=== PATIENT | male | born 1965 | race Caucasian/White ===

== ENCOUNTER 2020-02-15 12:15 | Emergency (ER) | payer OTHER, SELFPAY ==
[2020-02-15 12:17] VITALS: BP 154/84; PULSE 79; RESP 20; TEMP 36.6; O2SAT 97; BMI 30.4
--- NOTE | 2020-02-15 12:25 | ED.RN ---
no old ekgs
--- NOTE | 2020-02-15 12:35 | RAD_ITS ---
STUDY: X-RAY CHEST REASON FOR EXAM: Male, 54 years old. CHEST PAIN, SOB TECHNIQUE: Single AP portable view of the chest. COMPARISON: None. FINDINGS: There are monitoring devices. The lungs are clear and expanded. There is no demonstrated pleural abnormality. Normal size heart. Normal mediastinum and devika. Normal visualized pulmonary arteries. Normal visualized aortic arch and descending thoracic aorta. Normal visualized thoracic spine. Normal visualized ribs, clavicles, and shoulders. There is no demonstrated abnormality of the visualized soft tissue structures of the upper abdomen. RAD/Chest 1 View (Portable) IMPRESSION: Normal x-ray examination of the chest. Electronically Signed: Naveed Aquino MD at 13:11 EDT , Service support ,
--- NOTE | 2020-02-15 12:35 | EKG12_ITS ---
Test Reason : CP Blood Pressure : / mmHG Vent. Rate : 079 BPM Atrial Rate : 079 BPM P-R Int : 140 ms QRS Dur : 092 ms QT Int : 368 ms P-R-T Axes : 055 -21 032 degrees QTc Int : 421 ms Normal sinus rhythm Normal ECG Confirmed by DILLON ALEJO, RIKA ([id number]), photograph editor RAJAN HULL ([id number]) on 02/20/2020 11:15:44 AM Referred By: KAYLEY Confirmed By:JOSE LUIS CARRANZA MD
--- NOTE | 2020-02-15 12:36 | ED.DCSUM_ITS ---
- ER Visit Summary Date of Service: 02/15/20 Chief Complaint: Chest pain and palpitations History of Present Illness: The patient is a 54 M who presents with chest pain and palpitations that began today. Patient states he was driving to work and he felt like his heart was racing. Patient states this lasted several minutes until he got to work. Patient states he was feeling somewhat dizzy when he got out of his truck today. Patient states he had a coworker bring him to the emergency department. Patient does have a history of atrial fibrillation. Patient had a prostate biopsy done yesterday. Patient admits to some mild shortness of breath. Patient denies any cough. Patient admits to some mild nausea but denies any vomiting. Patient admits to some lightheadedness but denies any syncopal episode. Physical Examination: Vital signs are stable. Patient is afebrile. Patient is in no acute distress. Oral mucosa is pink and moist. Neck is supple. Trachea is midline. There is no JVD noted. Heart was regular rate and rhythm. Lungs are clear and equal bilaterally. Abdomen is soft. Bowel sounds are normal. There is no tenderness. There is no rebound or guarding noted. Skin is warm dry. Cranial nerves II through XII are intact. There are no focal motor or sensory deficits noted. Extremities are intact. There is no calf tenderness or edema. Test Results: EKG shows a normal sinus rhythm with a rate of 79. There are no acute ST or T wave changes. There are no prior EKGs available for comparison. CBC and basic metabolic profile were obtained and were within normal limits. Troponin was normal. D-dimer was elevated at 1.83. Portable chest x-ray was obtained and was normal. Because of the elevated d-dimer, CTA of the chest was obtained. There is limited enhancement of the pain pulmonary artery and right and left pulmonary arteries. There is subtle regions of diminished filling in the bilateral upper lung pulmonary arteries consistent with artifact versus embolism. This was interpreted by the radiologist and reviewed by myself. Because of this, venous duplex of the lower extremities was obtained. There is no evidence of DVT. Emergency Department Course and Treatment: Patient was advised of his findings. Patient feels better on reevaluation. Since the patient has normal vital signs and no evidence of DVT, I do not feel that he requires anticoagulation at this time considering the possibility of artifact on the CT. Patient has a HEART score of 3. Patient was advised that this is low risk for acute cardiac event. Patient was advised to follow-up with his primary care physician in 5 to 7 days. Patient was instructed return to the emergency department if worse in any way, especially if any chest pain or shortness of breath. Patient understands and is agreeable with the plan. All questions were answered. Disposition: Discharge home Impression: 1. Chest pain This note was generated with [employer] dictation software. It may contain incorrect words, spelling, and punctuation that were not noted in review of the chart prior to signing ED Disposition - Plan for ED Patient: Disposition: Home or Assisted Living Diagnosis: Chest pain Instructions: ED Chest Pain Atypical Unkn Cause Referrals: Wilrfido Merlos MD [Primary Care Provider] - 5-7 Days
[2020-02-15 12:49] VITALS: O2SAT 100
[2020-02-15] MEDS: Aspirin 81 MG TAB.CHEW 324 MG PO (13:09)
[2020-02-15 13:18] LABS: Absolute Lymphocyte Count 2.66 X10^3/uL (0.83-4.51); Absolute Neutrophil Count 4.6 X10^3/uL (2.0-7.7); Basophil# 0.03 X10^3/uL; Basophil% 0.4 % (0-1); Eosinophil# 0.07 X10^3/uL; Eosinophils% 0.9 % (0-5); Hematocrit 44.5 % (40-54); Lymphocyte # 2.66 X10^3/ul (4.0); Lymphocyte % 33.7 % (19-41); Mean Corp Hgb Conc 33.7 g/dL (32-36); Mean Corpuscular Hgb 30.3 pg (27.0-32.0); Mean Corpuscular Volume 89.9 fL (80-94); Mean Platelet Vol. 10.8 fl (6.2-12.0); Monocyte# 0.46 X10^3/uL; Monocyte% 5.8 % (0-10); NRBC Flagged by Analyzer 0 % (0-5); Neutrophil # 4.62 X10^3/uL (2.7-7.7); Neutrophil % 58.6 % (47-70); Platelet Count 166 K/mm3 (150-450); RBC Distribution Width CV 12.8 % (11.6-14.6); RBC Distribution Width SD 42.1 fl (35.1-43.9); Red Blood Count 4.95 M/mm3 (4.6-6.2); White Blood Count 7.9 K/mm3 (4.4-11.0)
[2020-02-15 13:20] VITALS: BP 113/70; PULSE 81; RESP 16; O2SAT 99
[2020-02-15 13:25] LABS: D-Dimer Quantitative (DVT/PE) 1.83 FEU/ug/m (0.27-0.49)
[2020-02-15 13:32] LABS: Anion Gap 5 (5-15); BUN 18 mg/dL (7-18); BUN/Creat Ratio 14.2 RATIO (10-20); Chloride 105 mmol/L (98-107); Creatinine, Serum 1.27 mg/dL (0.70-1.30); EST Glomerular Filtration Rate 62 mL/min (>60); Est Glom Filt Rate - Afr Amer 75 mL/min (>60); Estimated Creatinine Clearance 71.29 ml/min; Glucose 167 mg/dL (74-106); Potassium 3.9 mmol/L (3.5-5.1); Sodium Level 139 mmol/L (136-145)
--- NOTE | 2020-02-15 14:02 | CT_ITS ---
We are attempting to reach an attending provider to discuss findings. An addendum with communication details will be sent when the communication is complete. STUDY: CTA CHEST REASON FOR EXAM: Male, 54 years old. SHORT OF BREATH,DIZZINESS, TACHYCARDIA, A-FIB RADIATION DOSAGE (If Supplied By Facility): CTDIvol = ( 11.85 ) mGy, DLP = ( 511.26 ) mGycm TECHNIQUE: The examination was performed with the intravenous administration of IV 100mL [id number]-[id number]. Post-processing of the angiographic images was performed, with multiplanar reformation and 3D reconstruction. Individualized dose optimization techniques were used for this CT. COMPARISON: Chest x-ray. FINDINGS: There is limited enhancement of the main pulmonary artery and right and left pulmonary arteries. There is limited enhancement of the bilateral peripheral pulmonary arteries. There is subtle regions of diminished filling of bilateral upper lung pulmonary arteries consistent with embolism versus artifact, series 2 image [id number] Normal thoracic aorta and visualized great vessels. There is no demonstrated aortic dissection. Normal heart and pericardium. Normal mediastinum. Normal hilar regions. Normal visualized trachea and bronchi. The lungs are well expanded. Normal pulmonary parenchyma. Normal pleura. Normal chest wall structures. There are degenerative changes of thoracic spine. Normal visualized upper abdomen. CT/CTA Chest W/WO Contrast IMPRESSION: Subtle regions of diminished filling of upper lung pulmonary arteries with embolism versus artifact. No focal infiltrate. Electronically Signed: Naveed Aquino MD at 15:04 EDT , Service support ,
[2020-02-15 14:30] VITALS: BP 113/78; PULSE 74; RESP 18; O2SAT 99
[2020-02-15 15:30] VITALS: BP 119/82; PULSE 67; RESP 18; O2SAT 98
--- NOTE | 2020-02-15 15:30 | VDLE_ITS ---
Reason For Study: elevated D-Dimer RIGHT LEFT GSV is normal. GSV is normal. CFV is compressible, spontaneous, phasic, CFV is compressible, spontaneous, phasic, competent and demonstrates normal competent, and demonstrates normal augmentation. augmentation. FV is compressible, spontaneous, phasic, FV is compressible, spontaneous, phasic, competent and demonstrates normal competent and demonstrates normal augmentation. augmentation. POP V is compressible, spontaneous, phasic, POP V is compressible, spontaneous, phasic, competent and demonstrates normal competent and demonstrates normal augmentation. augmentation. T/P Trunk is compressible. T/P Trunk is compressible. PTV is compressible. PTV is compressible. RT PerV is compressible. LT PerV is compressible. Procedure This is a venous duplex using B-mode, color flow and spectral Doppler. Exam performed portable in ED. The exam was diagnostic. A preliminary report was called and/or faxed to Dr. Gunn. Interpretation Summary Deep veins of the lower extremities are bilaterally patent and compressible segmentally. There is no evidence of deep vein thrombosis on either side. Valvular competence appears intact within the proximal deep venous systems bilaterally. The great saphenous veins appear bilaterally patent and compressible segmentally. Ordering Physician: Corbin Gunn Performed By: Boo Camacho RVT
[2020-02-15 16:14] VITALS: PULSE 73; RESP 18; O2SAT 98
== END 2020-02-15 16:15 | disposition home or self-care (01) ==
PROVIDERS: Emergency Provider Emergency Medicine; PCP Internal Medicine
DX: R07.9 Chest pain, unspecified (principal); R00.2 Palpitations; R06.00 Dyspnea, unspecified; R05 Cough; R11.0 Nausea; R42 Dizziness and giddiness; R79.89 Other specified abnormal findings of blood chemistry; I48.91 Unspecified atrial fibrillation; E11.9 Type 2 diabetes mellitus without complications; E03.9 Hypothyroidism, unspecified; E78.00 Pure hypercholesterolemia, unspecified; Z79.84 Long term (current) use of oral hypoglycemic drugs; Z79.899 Other long term (current) drug therapy
CPT/HCPCS: 71045; 71275; 80048; 84484; 85025; 85379; 93005; 93970; 99285; Q9967; A4216